=== PATIENT | male | born 1960 | race Caucasian/White ===

== ENCOUNTER 2017-10-09 05:08 | Inpatient (IN) | payer BC ==
[2017-09-24 12:19] LABS: HEMATOCRIT 45.2 % (42.0-52.0); HEMOGLOBIN 16.2 gm/dL (14.0-18.0); MCH 31.4 pg (26.0-34.0); MCHC 35.9 g/dL (28.0-37.0); MCV 87.3 fL (80.0-100.0); RBC 5.18 mil/uL (4.50-6.00); RDW 13.6 % (10.5-14.5); WBC 10.4 thou/uL (4.0-11.0)
[2017-09-24 12:21] LABS: URINE BILIRUBIN NEGATIVE (Negative); URINE BLOOD NEGATIVE (Negative); URINE COLOR YELLOW; URINE GLUCOSE-RANDOM* TRACE (Negative); URINE KETONES NEGATIVE (Negative); URINE LEUKOCYTES-REFLEX NEGATIVE (Negative); URINE PROTEIN (DIPSTICK) TRACE (Negative); URINE SPECIFIC GRAVITY 1.015 (1.003-1.035); URINE UROBILINOGEN 0.2 E.U./dl (0.2-1.0)
[2017-09-24 12:28] LABS: ALBUMIN 4.5 g/dL (3.4-5.0); CALCIUM 9.4 mg/dL (8.5-10.1); POTASSIUM 3.6 mmol/L (3.5-5.1)
[2017-09-24 12:36] LABS: PROTIME 10.7 Seconds (9.3-11.4)
[~2017-10-09] VITALS: Ht 190.5 cm; Wt 123.4 kg
--- NOTE | ~2017-10-09 | D ---
[facility] [place] [address] DISCHARGE SUMMARY Name: MENDEZ FLOWER Room #: 401-I ADM IN M.R.#: [id number] Admission: 10/09/17 Attend Phys: Lai Garduno MD Discharge: Date of : 58 Report #: [id number] THIS REPORT FOR: //name// CC: Lai Oterozenaida Maldonado DATE OF SERVICE: 10/12/2017 FINAL DIAGNOSIS: End-stage degenerative arthritis, right knee. OPERATIONS AND PROCEDURES: Right total knee replacement. HISTORY OF PRESENT ILLNESS: This 57-year-old gentleman presented with progressive right knee pain, which has been unresponsive to previous treatment including arthroscopic debridement, medical management and multiple injections. He has elected to go ahead with total knee replacement at this time. HOSPITAL COURSE: The patient was admitted and taken to the operating room on October 09. He underwent right total knee arthroplasty, which he tolerated well. Postoperatively, his course was largely unremarkable. He had good pain control with his femoral block and limited use of oral pain medications. He was able to rapidly advance with organized therapy and advance to independent ambulation using a walker. He did well on oral medications and regular diet. He seems to be safe and ready for discharge on October 12. DISCHARGE MEDICATIONS: Include hydrocodone 10/325 one q. 4 hours p.r.n. for pain and Xarelto 10 mg daily. He will continue moderate gentle activity at home and plans to start outpatient physical therapy at [facility] this coming week. I have asked the patient and his to call me directly if there should be any problems or questions. We can certainly see him back in 1 week for routine followup and wound inspection and will plan to see him back in 2 weeks for suture removal. By: [id number] Lai Garduno MD /nt
--- NOTE | ~2017-10-09 | O ---
[facility] [place] [address] OPERATIVE REPORT Name: MENDEZ FLWOER Room #: 401-I ADM IN M.R.#: [id number] Admission: 10/09/17 Attend Phys: Lai Garduno MD Discharge: Date of : 58 Report #: [id number] THIS REPORT FOR: //name// CC: Lai Oterozenaida Maldonado DATE OF SERVICE: 10/09/2017 PREOPERATIVE DIAGNOSIS: End-stage degenerative arthritis of the right knee. POSTOPERATIVE DIAGNOSIS: End-stage degenerative arthritis of the right knee. PROCEDURE: Right total knee arthroplasty. SURGEON: Lai Garduno MD INDICATIONS: This 57-year-old gentleman complains of chronic progressive right knee pain, which has been unresponsive to conservative measures including arthroscopic debridement and multiple injections, although his x-rays revealed only mild bony change. His clinical and arthroscopic evaluation revealed rather significant cartilage damage. His symptoms are severe and unresponsive to conservative measures. Given this, we have elected to go ahead with right total knee arthroplasty. DESCRIPTION OF PROCEDURE: The patient was taken to the operating room where he was placed under general anesthesia. Prophylactic intravenous antibiotics were administered. The right knee and leg were meticulously prepped and draped and a thigh tourniquet inflated to 300 mmHg. An anterior longitudinal skin incision was made. This was carried along the medial peripatellar retinaculum and the patella was reflected laterally. Rather severe degenerative change at the patellofemoral joint and moderate change at the medial compartment were noted. There was less severe damage in lateral compartment. The [employer] Kick[employer] knee system was utilized. Intramedullary guides were used on both the femur and the tibia. The femur was cut in 5 degrees of valgus and the tibia cut perpendicular to the long axis of bone. The femur seemed best suited for a size 6 femoral component. The tibia was also best suited for a size 6 tibial component. A trial reduction was performed and a 10-mm polyethylene insert fit nicely resulting in good alignment, stability and range of motion. The patellar surface was resected and a 35-mm patellar button seemed to fit nicely. Appropriate anchor holes were created. A trial patella was inserted. Once again, alignment, range of motion and stability were assessed and felt to be satisfactory. The trial components were removed. The surfaces were thoroughly irrigated and dried. The intramedullary canal was blocked with a bone block on both the femur and the tibia. Methyl methacrylate cement was mixed and injected into the [address] [address] OPERATIVE REPORT Name: MENDEZ FLOWER Room #: 401-I [facility] IN .R.#: [id number] Admission: 10/09/17 Attend Phys: Lai Garduno MD Discharge: Date of : 58 Report #: [id number] porous surface of the proximal tibia. The [employer] KickSport size 6 right tibial component was then impacted into position. It seated nicely and appeared to be secure. Excess cement was removed from around its margin. A 10-mm polyethylene insert was snapped into place, it seated nicely and appeared to be secure. A size 6 right femoral component was impacted on to the distal femur in a press-fit noncemented fashion, it also seated nicely and appeared to be secure. A 35-mm patellar button was cemented into place using appropriate anchor holes and cement. This was secured with a patellar clamp until the cement had hardened. All excess cement was removed from the margin of the implant. At this point, alignment, range of motion and stability were once again assessed and felt to be satisfactory. The tourniquet was deflated after a total tourniquet time of 55 minutes. The wound was copiously irrigated. Good hemostasis was established. A single Hemovac was placed exiting through a lateral stab incision. The fascia was then closed with multiple #1 Vicryl sutures. The subcutaneous tissues were closed with 0 Monocryl. The skin was closed with skin justo. A sterile dressing was applied. The patient was awakened and returned to the recovery room in good condition. <ELECTRONICALLY SIGNED> By: Lai Garduno MD 10/10/17 1621 [id number] Lai Garduno MD /nt
[~2017-10-09 05:08] MED LIST: ALLOPURINOL; ALLOPURINOL 30300 M1 PO; ALLOPURINOL PO; AMLODIPINE BESY10 MG PO; AZOR 10-20 MG1 EACH PO; AZOR 5-40 MG T1 EACH PO; BACLOFEN 10MG T10 M1 PO; BENICAR40 MG PO; BIAXIN 500 MG500 M1 PO; CELEBREX; CELEBREX 200 M200 MG PO; CYCLOBENZAPRINE10 MG PO; HYDROCHLOROTHIA25 M1 PO; HYDROCODONE-AP1 EAC6 PO; NAPROSYN500 MG PO; NEURONTIN 300300 M1 PO; NORCO 5-325 TA1 EACH PO; NORFLEX100 MG PO; PERCOCET 5-3251 EACH PO; PERCOCET PO; TEGRETOL XR100 MG PO; TRAMADOL 50 MG50 MG PO; TRICOR; VALIUM2 MG PO; ZOFRAN ODT4 MG PO; ZOFRAN4 MG PO
[2017-10-09 08:21] VITALS: BP 165/95
[2017-10-09 12:30] VITALS: BP 121/74
[2017-10-09 13:00] VITALS: BP 124/74
[2017-10-09 14:00] VITALS: BP 124/70
[2017-10-09 15:00] VITALS: BP 134/71
[2017-10-09 20:24] VITALS: BP 143/81
[2017-10-10 01:07] LABS: GLYCOHEMOGLOBIN (HGB A1C) 6.3 % (4.8-5.6)
[2017-10-10 03:58] LABS: HEMATOCRIT 35.7 % (42.0-52.0); HEMOGLOBIN 12.4 gm/dL (14.0-18.0); MCH 30.9 pg (26.0-34.0); MCHC 34.7 g/dL (28.0-37.0); MCV 89.1 fL (80.0-100.0); PLATELET COUNT 243 thou/uL (150-400); RBC 4.01 mil/uL (4.50-6.00); RDW 13.6 % (10.5-14.5); WBC 12.4 thou/uL (4.0-11.0)
[2017-10-10 04:00] LABS: MANUAL DIFF YES
[2017-10-10 04:15] LABS: ALBUMIN 3.2 g/dL (3.4-5.0); ALKALINE PHOSPHATASE 66 U/L (46-116); ANION GAP 12 mmol/L (7-16); BUN 21 mg/dL (7-18); CALCIUM 8.4 mg/dL (8.5-10.1); CHLORIDE 104 mmol/L (98-107); CHOLESTEROL 184 mg/dL (<200); CO2 25 mmol/L (21-32); CREATININE 1.1 mg/dL (0.7-1.3); GLUCOSE 210 mg/dL (74-106); HDL CHOLESTEROL 34 mg/dL (>40); LDL CHOLESTEROL 112 mg/dL (<100); MAGNESIUM 1.8 mg/dL (1.8-2.4); POTASSIUM 3.7 mmol/L (3.5-5.1); SGOT 29 U/L (15-37); SGPT 42 U/L (30-65); SODIUM 141 mmol/L (136-145); TC:HDL 5.4 Ratio (Not establshd); TOTAL BILIRUBIN 0.7 mg/dL (<0.1-1.0); TRIGLYCERIDE 191 mg/dL (<150); VLDL 38 mg/dL (<40)
[2017-10-10 04:16] LABS: SERUM ASSESSMENT Clear
[2017-10-10 05:50] VITALS: BP 141/87
[2017-10-10 05:50] LABS: ABSOLUTE NEUTROPHILS 10.8 thou/uL (1.4-8.2); MYELOCYTES 1 %; TOTAL CELL COUNT 100
[2017-10-10 08:24] VITALS: BP 133/77
[2017-10-10 15:57] VITALS: BP 142/87
[2017-10-10 19:10] VITALS: BP 155/80
[2017-10-11 05:05] VITALS: BP 141/78
[2017-10-11 06:33] LABS: HEMATOCRIT 35.2 % (42.0-52.0); HEMOGLOBIN 12.4 gm/dL (14.0-18.0); MCH 31.3 pg (26.0-34.0); MCHC 35.3 g/dL (28.0-37.0); MCV 88.7 fL (80.0-100.0); RBC 3.97 mil/uL (4.50-6.00); RDW 13.3 % (10.5-14.5); WBC 11.1 thou/uL (4.0-11.0)
[2017-10-11 08:00] VITALS: BP 149/82
[2017-10-11] MEDS ORDERED: XARELTO10 MG PO (08:23)
[2017-10-11 16:00] VITALS: BP 148/76
[2017-10-11 19:53] VITALS: BP 163/92
[2017-10-12 04:19] VITALS: BP 167/99
[2017-10-12 06:03] LABS: HEMATOCRIT 35.1 % (42.0-52.0); HEMOGLOBIN 12.4 gm/dL (14.0-18.0); MCH 31.1 pg (26.0-34.0); MCHC 35.4 g/dL (28.0-37.0); RDW 13.8 % (10.5-14.5); WBC 10.2 thou/uL (4.0-11.0)
[2017-10-12 07:32] VITALS: BP 155/82
[2017-10-12 09:46] VITALS: BP 155/82
[2017-10-12 10:25] VITALS: BP 155/82
== END 2017-10-12 12:09 | disposition home or self-care (01) | DRG 470 ==
LOC: TBA 05:08 → PRE 05:19 → 4N 12:32 → PRE 12:43 → 4N 10-12 12:09
PROVIDERS: Nurse Practitioner; Orthopaedic Surgery
PROC: 0SRC0JA Replacement of Right Knee Joint with Synthetic Substitute, Uncemented, Open Approach (ICD-10-PCS; principal; 2017-10-09)
PROC: 3E0T3BZ Introduction of Anesthetic Agent into Peripheral Nerves and Plexi, Percutaneous Approach (ICD-10-PCS; principal; 2017-10-09)
DX: M17.11 Unilateral primary osteoarthritis, right knee (principal); M10.9 Gout, unspecified; I10 Essential (primary) hypertension; Z88.0 Allergy status to penicillin
CPT/HCPCS: 10790; 50010; 50101; 50415; 50954; 51130; 51225; 51412; 51771; 53364; 56525; 62110; 62900; 64042; 64043; 70005

== ENCOUNTER → 2018-10-12 | Outpatient (CLI) | payer BC ==
[~2018-10-12] MED LIST changes: +XARELTO10 MG PO
== END ==
LOC: ULTRA 14:28
DX: R16.2 Hepatomegaly with splenomegaly, not elsewhere classified (principal)

== ENCOUNTER 2019-10-03 13:20 | Emergency (ER) | payer BC ==
[~2019-10-03] VITALS: Ht 190.5 cm; Wt 129.3 kg
[2019-10-03 14:13] LABS: HEMATOCRIT 40.3 % (42.0-52.0); MCH 31.5 pg (26.0-34.0); MCHC 34.7 g/dL (28.0-37.0); MCV 90.9 fL (80.0-100.0); RBC 4.43 mil/uL (4.50-6.00); RDW 13.5 % (10.5-14.5); WBC 8.2 thou/uL (4.0-11.0)
[2019-10-03 14:20] LABS: CALCIUM 9.3 mg/dL (8.5-10.1); CREATININE 1.2 mg/dL (0.7-1.3); POTASSIUM 3.5 mmol/L (3.5-5.1)
[2019-10-03 14:28] VITALS: BP 151/93
--- NOTE | 2019-10-05 18:57 | EKG ---
[address] [address] ELECTROCARDIOGRAM REPORT Name: MENDEZ FLOWER [id number] Admission: 10/03/19 Attend Phys: Discharge: 10/03/19 Date of : 58 Report #: [id number] THIS REPORT FOR: //name// [facility] ED Test Date: 2019-10-03 Test Time: 13:26:08 Pat Name: MENDEZ FLOWER Department: Room: Gender: M Drilling Assistant: MELISSA : 1960 Requested By: Eliud Moctezuma Order Number: [id number] MD: Kirt Schilling Measurements Intervals [place] Rate: 86 P: -2 [place]: 201 QRS: -21 QRSD: 93 T: 69 QT: 374 QTc: 448 Interpretive Statements Sinus rhythm Abnormal R-wave progression, early transition Left ventricular hypertrophy Baseline wander in lead(s) V1 Compared to ECG 11/05/2016 07:12:29 T-wave abnormality no longer present Electronically Signed On 10-05-2019 18:57:36 [employer] by Kirt Schilling [email or web address] <ELECTRONICALLY SIGNED> By: Kirt Schilling MD, [facility] 10/05/19 1857 [id number] 1326 Kirt Schilling MD, [facility] /EPI
== END 2019-10-03 14:28 | disposition home or self-care (01) ==
LOC: ER 13:20
PROVIDERS: Physician Assistant
DX: I10 Essential (primary) hypertension (principal); R42 Dizziness and giddiness; E78.5 Hyperlipidemia, unspecified; E11.9 Type 2 diabetes mellitus without complications; M19.90 Unspecified osteoarthritis, unspecified site; Z90.89 Acquired absence of other organs; Z88.0 Allergy status to penicillin

== ENCOUNTER → 2020-06-12 | Outpatient (CLI) | payer BC ==
[2020-06-12 14:57] LABS: CALCIUM 8.9 mg/dL (8.5-10.1); CREATININE 1.1 mg/dL (0.7-1.3); POTASSIUM 3.6 mmol/L (3.5-5.1)
== END ==
LOC: CAT 13:50
PROVIDERS: ATTEND Nurse Practitioner
DX: K44.9 Diaphragmatic hernia without obstruction or gangrene (principal); K40.90 Unilateral inguinal hernia, without obstruction or gangrene, not specified as recurrent; M51.36 Other intervertebral disc degeneration, lumbar region

== ENCOUNTER → 2021-01-29 | Outpatient (CLI) | payer BC | LOC: SJCVCIMAG 07:53 | PROVIDERS: ATTEND Internal Medicine | DX: R00.0 Tachycardia, unspecified (principal); R00.2 Palpitations; R94.31 Abnormal electrocardiogram [ECG] [EKG]; R06.00 Dyspnea, unspecified ==

== ENCOUNTER → 2021-05-14 | Outpatient (CLI) | payer BC | LOC: ULTRA 08:54 | PROVIDERS: ATTEND Nurse Practitioner | DX: K76.0 Fatty (change of) liver, not elsewhere classified (principal); R16.1 Splenomegaly, not elsewhere classified; R74.8 Abnormal levels of other serum enzymes ==

== ENCOUNTER → 2021-12-24 | Outpatient (CLI) | payer BC | LOC: RAD 11:07 | PROVIDERS: ATTEND Nurse Practitioner | DX: M50.323 Other cervical disc degeneration at C6-C7 level (principal); M50.322 Other cervical disc degeneration at C5-C6 level ==